=== PATIENT | male | born 1970 | race Caucasian/White ===

== ENCOUNTER 2018-09-21 13:54 | Emergency (ER) | payer BC ==
[2018-09-21] MEDS: NORCO, ANEXSIA 5/325MG TABLET (HYDROcodone/ACETAMINOPHEN) PO (14:40)
== END 2018-09-21 15:05 | disposition home or self-care (01) ==
LOC: M ED 13:54
DX: S80.11XA Contusion of right lower leg, initial encounter (principal); V86.92XA Unspecified occupant of snowmobile injured in nontraffic accident, initial encounter
CPT/HCPCS: 73590